=== PATIENT | female | born 2005 | race Caucasian/White ===

== ENCOUNTER 2025-09-05 10:44 | Day surgery (SDC) | payer BC ==
[~2025-09-05 10:44] MED LIST: EPINEPHrine 1 MG/ML SDV ONE; Sodium Chloride 0.9% 10 ML Syringe FLUSH PRN; Sodium Chloride 0.9% 10 ML Syringe FLUSH SCH
[2025-09-05] MEDS: Lactated Ringers 1,000 ML IV SCH (11:05)
[2025-09-05] MEDS ORDERED: propofoL 500 MG/50 ML 50 ML ONE (11:39)
[2025-09-05] MEDS ORDERED: fentaNYL 250 MCG/5 ML SDV ONE (11:39)
[2025-09-05] MEDS ORDERED: dexmedeTOMIDine HCl 200 MCG/2 ML SDV ONE (11:39)
[2025-09-05] MEDS ORDERED: Ondansetron 4 MG/2 ML SDV ONE (11:40)
[2025-09-05] MEDS ORDERED: Dexamethasone 4 MG/ML 5 ML MDV ONE (12:04)
[2025-09-05] MEDS: EPINEPHrine 1 MG/ML SDV ONE (12:30)
[2025-09-05] MEDS ORDERED: Ketorolac 30 MG/ML SDV ONE (12:37)
[2025-09-05] MEDS ORDERED: fentaNYL 100 MCG/2 ML SDV IVPUSH PRN (12:50)
[2025-09-05] MEDS ORDERED: Ondansetron 4 MG/2 ML SDV IVPUSH PRN (12:50)
[2025-09-05] MEDS: diphenhydrAMINE 50 MG/ML SDV IVPUSH PRN (13:32)
[2025-09-05] MEDS: Acetaminophen/HYDROcodone 325-5 MG Tab PO SCH (13:40)
== END 2025-09-05 14:40 | disposition home or self-care (01) ==
LOC: JD.SDS 10:44
PROVIDERS: ATTEND Orthopaedic Surgery
DX: M25.861 Other specified joint disorders, right knee (principal); M22.41 Chondromalacia patellae, right knee; Z88.1 Allergy status to other antibiotic agents; Z88.8 Allergy status to other drugs, medicaments and biological substances; Z79.899 Other long term (current) drug therapy; Z91.040 Latex allergy status; Z91.013 Allergy to seafood
CPT/HCPCS: 29875; 81025; A9270; J0169; J0665; J0690; J1100; J1200; J1885; J2003; J2405; J2704; J3010; J7120; 01400